=== PATIENT | male | born 2000 | race Caucasian/White ===

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

== ENCOUNTER 2024-09-20 20:25 | Emergency (ER) | payer SELFPAY ==
[2024-09-20] MEDS ORDERED: Acetaminophen/oxyCODONE 325-5 MG Tab PO ONE (20:26)
[2024-09-20] MEDS ORDERED: Silver Sulfadiazine 1% Crm 50 GM Tube TOP ONE (20:26)
[2024-09-20] MEDS: Acetaminophen/oxyCODONE 325-5 MG Tab PO ONE (20:47)
[2024-09-20 21:01] VITALS: BP 143/77; PULSE 65
== END 2024-09-20 21:14 | disposition home or self-care (01) ==
LOC: FB.ED 20:25
DX: T23.222A Burn of second degree of single left finger (nail) except thumb, initial encounter (principal); F17.290 Nicotine dependence, other tobacco product, uncomplicated; Z79.899 Other long term (current) drug therapy; X12.XXXA Contact with other hot fluids, initial encounter
CPT/HCPCS: 16020; 99283; A9270

== ENCOUNTER 2024-11-04 22:51 | Emergency (ER) | payer SELFPAY ==
[2024-11-05 01:14] VITALS: BP 108/65; PULSE 58
== END 2024-11-05 00:57 | disposition home or self-care (01) ==
LOC: FB.ED 22:51
DX: S43.402A Unspecified sprain of left shoulder joint, initial encounter (principal); Z79.899 Other long term (current) drug therapy; V86.92XA Unspecified occupant of snowmobile injured in nontraffic accident, initial encounter
CPT/HCPCS: 73030-LT; 99283